=== PATIENT | female | born 1995 | race Caucasian/White ===

== ENCOUNTER → 2018-10-21 | Outpatient (CLI) | payer BC, OTHER ==
[2018-10-21 17:53] LABS: ABSOLUTE BASOPHILS # (AUTO) 0.1 10^3/uL (0.0-0.2); ABSOLUTE EOSINOPHILS # (AUTO) 0.1 10^3/uL (0.0-0.6); ABSOLUTE MONOCYTES (AUTO) 0.7 10^3/uL (0.1-1.4); ABSOLUTE NEUT (AUTO) 4.9 10^3/uL (1.7-8.2); BASOPHILS % (AUTO) 0.7 % (0-2); EOSINOPHILS % (AUTO) 1.3 % (0-6); HEMATOCRIT 39.1 % (36.0-47.0); HEMOGLOBIN 13.3 g/dL (12.0-15.5); LYMPHOCYTES % (AUTO) 26.5 % (13-45); MEAN CORPUSCULAR HEMOGLOBIN 31.1 pg (27.0-33.4); MEAN CORPUSCULAR HGB CONC 34.1 g/dL (32.0-36.0); MEAN CORPUSCULAR VOLUME 91 fl (80-97); MONOCYTES % (AUTO) 8.5 % (3-13); PLATELET COUNT 231 10^3/uL (150-450); RED BLOOD COUNT 4.29 10^6/uL (3.72-5.28); RED CELL DISTRIBUTION WIDTH 12.3 % (11.5-14.0); TOTAL CELLS COUNTED % (AUTO) 100 %; WHITE BLOOD COUNT 7.7 10^3/uL (4.0-10.5)
== END ==
LOC: OD 16:40
PROVIDERS: ATTEND Advanced Practice Midwife
DX: O20.0 Threatened abortion (principal)
CPT/HCPCS: 36415; 84702; 85025

== ENCOUNTER 2018-10-22 15:52 | Emergency (ER) | payer BC, OTHER ==
--- NOTE | 2018-10-22 16:39 | ER Document Report ---
ED Medical Screen (RME) - General Chief Complaint: Vaginal Bleeding Stated Complaint: ABDOMINAL PAIN,VAGINAL BLEEDING Time Seen by Provider: 10/22/18 16:24 Primary Care Provider: SIN HOOD CNM [Primary Care Provider] - Follow up as needed Notes: Patient is a patient is a 23-year-old female presents to the emergency department with a chief complaint of vaginal bleeding. Patient reports her last menstrual cycle was September 05. Patient reports on October 19 she did have a home test. Patient is a G1, P0. Patient was seen at the health department yesterday where she did receive a transvaginal ultrasound. Patient states that they told her she was not 6 weeks like she thought. Patient reports her quant was 800 and that she was supposed to return to the lab on Saturday to have repeat blood work. Patient states she has had increasing vaginal bleeding over the past 3 days which in the past hour has turned into dark red vaginal bleeding with clots. Patient states that her pelvic discomfort as worsened. TRAVEL OUTSIDE OF THE [place] IN LAST 30 DAYS: No - Related Data Allergies/Adverse Reactions: Penicillins Allergy (Verified 10/22/18 16:21) Past Medical History - General Last Menstrual Period: 09/05/18 - Social History Frequency of alcohol use: None Drug Abuse: None Renal/ Medical History: Denies: Hx Peritoneal Dialysis Past Surgical History: Reports: Hx Oral Surgery - gum surgery 2009 Physical Exam - Vital signs Vitals: Temp Pulse Resp BP Pulse Ox 98.4 F 98 15 115/65 100 10/22/18 15:57 10/22/18 15:57 10/22/18 15:57 10/22/18 15:57 10/22/18 15:57 Interpretation: Normal - Abdominal Inspection: Normal Distension: No distension Bowel sounds: Normal Tenderness: Nontender Organomegaly: No organomegaly Course - Re-evaluation Re-evalutation: 10/22/18 16:38 I have greeted and performed a rapid initial assessment of this patient. A comprehensive ED assessment and evaluation of the patient, analysis of test results and completion of the medical decision making process will be conducted by additional ED providers. - Vital Signs Vital signs: Temp Pulse Resp BP Pulse Ox 98.4 F 98 15 115/65 100 10/22/18 15:57 10/22/18 15:57 10/22/18 15:57 10/22/18 15:57 10/22/18 15:57 Doctor's Discharge - Discharge Referrals: SIN HOOD CNM [Primary Care Provider] - Follow up as needed
[2018-10-22 17:15] LABS: APPEARANCE,URINE SLIGHTLY-CLOUDY; BILIRUBIN,URINE NEGATIVE (NEGATIVE); COLOR,URINE YELLOW; GLUCOSE, URINE NEGATIVE (NEGATIVE); KETONES,URINE NEGATIVE (NEGATIVE); LEUKOCYTE ESTERASE,URINE NEGATIVE (NEGATIVE); NITRITE,URINE NEGATIVE (NEGATIVE); PROTEIN,URINE NEGATIVE (NEGATIVE); URINE SPECIFIC GRAVITY 1.019; UROBILINOGEN,URINE NEGATIVE mg/dL (<2.0)
[2018-10-22 17:22] LABS: ABSOLUTE EOSINOPHILS # (AUTO) 0.1 10^3/uL (0.0-0.6); ABSOLUTE LYMPHOCYTES (AUTO) 2.6 10^3/uL (0.5-4.7); ABSOLUTE MONOCYTES (AUTO) 0.7 10^3/uL (0.1-1.4); ABSOLUTE NEUT (AUTO) 5.5 10^3/uL (1.7-8.2); BASOPHILS % (AUTO) 0.4 % (0-2); EOSINOPHILS % (AUTO) 1.5 % (0-6); HEMATOCRIT 39.7 % (36.0-47.0); HEMOGLOBIN 13.3 g/dL (12.0-15.5); MEAN CORPUSCULAR HEMOGLOBIN 31.1 pg (27.0-33.4); MEAN CORPUSCULAR HGB CONC 33.6 g/dL (32.0-36.0); MEAN CORPUSCULAR VOLUME 93 fl (80-97); MONOCYTES % (AUTO) 8.3 % (3-13); PLATELET COUNT 252 10^3/uL (150-450); RED BLOOD COUNT 4.29 10^6/uL (3.72-5.28); SEGMENTED NEUTROPHILS % (AUTO) 60.8 % (42-78); TOTAL CELLS COUNTED % (AUTO) 100 %; WHITE BLOOD COUNT 9.1 10^3/uL (4.0-10.5)
[2018-10-22 17:41] LABS: ALBUMIN 4.6 g/dL (3.5-5.0); ALKALINE PHOSPHATASE 52 U/L (38-126); ANION GAP 10 (5-19); ASPARTATE AMINO TRANSFERASE 21 U/L (14-36); BILIRUBIN,DIRECT 0.1 mg/dL (0.0-0.4); BILIRUBIN,TOTAL 0.2 mg/dL (0.2-1.3); BLOOD UREA NITROGEN 10 mg/dL (7-20); CALCIUM 9.7 mg/dL (8.4-10.2); CARBON DIOXIDE 29 mmol/L (22-30); CHLORIDE 100 mmol/L (98-107); GLUCOSE 86 mg/dL (75-110); POTASSIUM 4.3 mmol/L (3.6-5.0); TOTAL PROTEIN 7.5 g/dL (6.3-8.2)
--- NOTE | 2018-10-22 18:37 | RADIOLOGY REPORT (SQ) ---
EXAM DESCRIPTION: U/S OB TRANSVAG W/DOPPLER COMPLETED DATE/TIME: 10/22/2018 6:25 pm REASON FOR STUDY: vaginal bleeding, pelvic pain, + home preg COMPARISON: None. TECHNIQUE: Transvaginal static and realtime grayscale images acquired of the pelvis. Additional derek cted spectral and color Doppler images recorded. All images stored on PACs. [facility] CLINICAL DATES: LMP 09/05/2018. 6 weeks 5 days. LIMITATIONS: None. FINDINGS: There is questionably a small gestational sac. Hand intrauterine is not confirm ed. UTERUS: No masses. No anomalies. CERVICAL LENGTH: 2.1 cm. Closed. RIGHT ADNEXA: Normal vascular flow. 3.1 x 3.7 x 1.9 cm. There is a complex mass in the right ovary measuring 16 mm. No adnexal free fluid. No adnexal masses. LEFT ADNEXA: Normal ovary with normal vascular flow. 2.7 x 2 x 1.6 cm. No adnexal free fluid. No adnexal masses. FREE FLUID: None. OTHER: No other significant finding. IMPRESSION: An intrauterine gestation is not confirmed. There is a complex area in the right ovary. Cannot exclude an ectopic . Correlate clinically. TECHNICAL DOCUMENTATION: JOB ID: [id number] [employer] All Rights Reserved Reading location - IP/workstation name: [email or web address]
[2018-10-22 20:08] VITALS: BP 126/75
--- NOTE | 2018-10-22 20:09 | ER Document Report ---
ED GI/ - General Chief Complaint: Vaginal Bleeding Stated Complaint: ABDOMINAL PAIN,VAGINAL BLEEDING Time Seen by Provider: 10/22/18 16:24 Primary Care Provider: [facility] [Provider Group] - Follow up as needed SIN HOOD CNM [Primary Care Provider] - Follow up as needed Mode of Arrival: Ambulatory Information source: Patient Notes: 23-year-old female presented to ED for complaint of increased vaginal bleeding pelvic pain and positive test. She states she went to the health department yesterday and received a hCG level and ultrasound and was told that she was not 6 weeks that she only had a hCG quant of 800 and there was no definite noted in the uterus. She was supposed to return to the [facility] department on Saturday to get a repeat blood draw and to see the doctor on Saturday. She states the vaginal bleeding increased she developed clots and dark red blood and she became concerned so she came to the emergency room. Her hCG is now 600 and the bleeding is now similar to a period. Patient is al ert oriented respirations regular and unlabored speaking in full sentences and is in no acute distress. This is her first . TRAVEL OUTSIDE OF THE [place] IN LAST 30 DAYS: No - HPI Patient complains to provider of: Pelvic pain, , Vaginal bleeding Onset: Other Timing/Duration: Gradual - See HPI, Worse Quality of pain: Cramping Severity at maximum: Moderate Severity in ED: Mild Pain Level: 2 Location: Pelvis Vaginal bleeding (Compared to normal period): Similar LMP: 09/05/2018 : 1 Para: 0 Associated symptoms: Other - Vaginal bleeding and pelvic pain Exacerbated by: Denies Relieved by: Denies Similar symptoms previously: Yes Recently seen / treated by doctor: Yes - Related Data Allergies/Adverse Reactions: Penicillins Allergy (Verified 10/22/18 16:21) Past Medical History - General Information source: Patient Last Menstrual Period: 09/05/18 - Social History Smoking Status: Never Smoker Frequency of alcohol use: None Drug Abuse: None Lives with: Family Family History: Reviewed & Not Pertinent Patient has suicidal ideation: No Patient has homicidal ideation: No - Past Medical History Cardiac Medical History: Reports: None Pulmonary Medical History: Reports: None EENT Medical History: Reports: None Neurological Medical History: Reports: None Endocrine Medical History: Reports: None Renal/ Medical History: Reports: None Malignancy Medical History: Reports: None GI Medical History: Reports: None Musculoskeletal Medical History: Reports None Skin Medical History: Reports None Psychiatric Medical History: Reports: None Traumatic Medical History: Reports: None Infectious Medical History: Reports: None Past Surgical History: Reports: Hx Oral Surgery - gum surgery 2010 - Immunizations Immunizations up to date: Yes Review of Systems - Review of Systems Constitutional: No symptoms reported EENT: No symptoms reported Cardiovascular: No symptoms reported Respiratory: No symptoms reported Gastrointestinal: No symptoms reported Genitourinary: No symptoms reported Female Genitourinary: , Vaginal bleeding, Other - Pelvic pain Musculoskeletal: No symptoms reported Skin: No symptoms reported Hematologic/Lymphatic: No symptoms reported Neurological/Psychological: No symptoms reported -: Yes All other systems reviewed and negative Physical Exam - Vital signs Vitals: Temp Pulse Resp BP Pulse Ox 98.4 F 98 15 115/65 100 10/22/18 15:57 10/22/18 15:57 10/22/18 15:57 10/22/18 15:57 10/22/18 15:57 Interpretation: Normal - General General appearance: Appears well, Alert - HEENT Head: Normocephalic, Atraumatic Eyes: Normal Pupils: PERRL - Respiratory Respiratory status: No respiratory distress Chest status: Nontender Breath sounds: Normal Chest palpation: Normal - Cardiovascular Rhythm: Regular Heart sounds: Normal auscultation Murmur: No - Abdominal Inspection: Normal Distension: No distension Bowel sounds: Normal Tenderness: Nontender Organomegaly: No organomegaly - Genitourinary External exam: Normal Speculum exam: Cervix closed Vaginal bleeding: Moderate Bimanuel exam: Normal - Back Back: Normal, Nontender - Extremities General upper extremity: Normal inspection, Nontender, Normal color, Normal ROM, Normal temperature General lower extremity: Normal inspection, Nontender, Normal color, Normal ROM, Normal temperature, Normal weight bearing. No: Kalyn's sign - Neurological Neuro grossly intact: Yes Cognition: Normal Orientation: AAOx4 Magness Coma Scale Eye Opening: Spontaneous [place] Coma Scale Verbal: Oriented [place] Coma Scale Motor: Obeys Commands Magness Coma Scale Total: 15 Speech: Normal Motor strength normal: LUE, RUE, LLE, RLE Sensory: Normal - Psychological Associated symptoms: Normal affect, Normal mood - Skin Skin Temperature: Warm Skin Moisture: Dry Skin Color: Normal Course - Re-evaluation Re-evalutation: 10/23/18 02:02 Labs and ultrasound reports discussed with patient and written reports of labs and ultrasound given to patient to follow-up with [facility] by telephone tomorrow to schedule follow-up with the doctor handling her care. Her hCG has decreased from the day before. I did discuss the ultrasound and the importance of following up with the INVOICE CONTROL CLERK. Patient verbalized understanding an d agreement with treatment plan and patient was discharged home. - Vital Signs Vital signs: Temp Pulse Resp BP Pulse Ox 97.9 F 79 16 126/75 H 99 10/22/18 20:05 10/22/18 20:05 10/22/18 20:05 10/22/18 20:05 10/22/18 20:05 - Laboratory Result Diagrams: 10/22/18 16:53 10/22/18 16:53 Laboratory results interpreted by me: 10/22/18 10/22/18 10/22/18 16:53 16:53 16:53 Serum HCG, Qual POSITIVE H Beta HCG, Quant 661.86 H Urine Blood LARGE H - Diagnostic Test Radiology reviewed: Image reviewed, Reports reviewed Discharge - Discharge Clinical Impression: Vaginal bleeding affecting early Condition: Stable Disposition: HOME, SELF-CARE Additional Instructions: You were seen today for mild pelvic cramping and vaginal bleeding during . I have given you a copy of the lab results and the ultrasound report. You are to follow-up with the INVOICE CONTROL CLERK by telephone tomorrow and have them decide when for you to follow-up as you saw them yesterday and your levels have dropped from yesterday. There is no definite intrauterine and there is a complex cyst on your ovary. This needs to be followed up by the INVOICE CONTROL CLERK. As you were in no acute distress at this time you are not having any fevers the bleeding is not severe you are safe to follow-up with the INVOICE CONTROL CLERK tomorrow. If you have any increase in pain or bleeding any fevers return to the emergency room. FOLLOW-UP CARE: If you have been referred to a physician for follow-up care, call the physicians office for an appointment as you were instructed or within the next two days. If you experience worsening or a significant change in your symptoms, notify the physician immediately or return to the Emergency Department at any time for re-evaluation. Referrals: HOOD,SIN E, CNM [Primary Care Provider] - Follow up as needed [facility] [Provider Group] - Follow up as needed
== END 2018-10-22 20:13 | disposition home or self-care (01) ==
LOC: ER 15:52
DX: O20.9 Hemorrhage in early pregnancy, unspecified (principal); R10.2 Pelvic and perineal pain; Z3A.01 Less than 8 weeks gestation of pregnancy; Z88.0 Allergy status to penicillin
CPT/HCPCS: 36415; 76817; 80053; 81001; 84702; 84703; 85025; 86900; 86901; 93976; 99284

== ENCOUNTER → 2018-10-24 | Outpatient (CLI) | payer BC, OTHER | LOC: OD 15:49 | PROVIDERS: ATTEND Advanced Practice Midwife | DX: O20.0 Threatened abortion (principal) | CPT/HCPCS: 36415; 84702 ==